=== PATIENT | female | born 1955 | race Asian ===

== ENCOUNTER 2016-11-04 08:12 | Day surgery (SDC) | END 2016-11-04 12:25 | disposition home or self-care (01) | DX: D12.6 Benign neoplasm of colon, unspecified (principal) | CPT/HCPCS: 45380; J2250; J3010 ==

== ENCOUNTER → 2016-11-17 | Outpatient (CLI) | payer BC ==
[~2016-11-17] MED LIST: AMLO1TAB; FISH OIL; PRAVASTATIN; SIMV10TA PO; VIT D
[2016-11-17 09:58] LABS: BASOPHIL # 0.1 10^3/ul (0.0-0.1); EOSINOPHILS # 0.3 10^3/ul (0.0-0.5); EOSINOPHILS % 4.9 % (0.0-7.0); HEMATOCRIT 42.4 % (37.0-47.0); HEMOGLOBIN 14.6 g/dl (12.0-16.0); LYMPHOCYTES # 2.5 10^3/ul (0.8-2.9); LYMPHOCYTES % 40.9 % (15.0-51.0); MEAN CORPUSCULAR HEMOGLOBIN 30.3 pg (29.0-33.0); MEAN CORPUSCULAR HGB CONC 34.4 g/dl (32.0-37.0); MEAN PLATELET VOLUME 9.2 fl (7.4-10.4); MONOCYTE # 0.3 10^3/ul (0.3-0.9); MONOCYTES % 5.2 % (0.0-11.0); NEUTROPHILS % 47.8 % (39.0-77.0); PLATELET COUNT 238 10^3/UL (140-415); RED BLOOD COUNT 4.82 10^6/ul (4.20-5.40); RED CELL DISTRIBUTION WIDTH 13.2 % (11.5-14.5); WHITE BLOOD COUNT 6.1 10^3/ul (4.8-10.8)
[2016-11-17 10:34] LABS: ALBUMIN 4.8 g/dl (3.3-4.9); ALBUMIN/GLOBULIN RATIO 1.17; BILIRUBIN,INDIRECT 0.5 mg/dl (0-1.1); BILIRUBIN,TOTAL 0.5 mg/dl (0.2-1.3); CALCIUM 10.3 mg/dl (8.4-10.2); CREATININE 0.82 mg/dl (0.44-1.00); POTASSIUM 4.3 mmol/L (3.5-5.1); TOTAL PROTEIN 8.9 g/dl (6.1-8.1)
[2016-11-17 11:06] LABS: CARCINOEMBRYONIC ANTIGEN 1.2 ng/ml (0.0-5.0)
== END | disposition home or self-care (01) ==
LOC: LAB 09:18
PROVIDERS: ATTEND Internal Medicine Hematology & Oncology
DX: C50.919 Malignant neoplasm of unspecified site of unspecified female breast (principal)
CPT/HCPCS: 80053; 82378; 82977; 83615; 85025; 86300

== ENCOUNTER → 2017-11-09 | Outpatient (CLI) | END | disposition home or self-care (01) ==

== ENCOUNTER → 2018-06-28 | Outpatient (CLI) | payer BC ==
[~2018-06-28] MED LIST changes: -AMLO1TAB
== END | disposition home or self-care (01) ==
LOC: LAB 11:21
PROVIDERS: ATTEND Internal Medicine
DX: E55.9 Vitamin D deficiency, unspecified (principal); E03.9 Hypothyroidism, unspecified; E78.5 Hyperlipidemia, unspecified; M19.012 Primary osteoarthritis, left shoulder
CPT/HCPCS: 73030; 80053; 80061; 83036; 84436; 84443; 85025

== ENCOUNTER 2018-07-08 20:06 | Emergency (ER) | payer BC ==
[~2018-07-08] VITALS: Ht 157.5 cm; Wt 57.9 kg
[2018-07-08 20:07] VITALS: Ht 157.5 cm; Wt 57.9 kg
[2018-07-08] MEDS ORDERED: SOD CHLORIDE 0.9% 500 ML IV STA (21:34)
--- NOTE | 2018-07-09 01:00 | ERD ---
ER Documentation Chief Complaint Chief Complaint SUDDEN ONSET OF SOB WITH BLURRED VISION AND CHEST PAIN HPI Is a 62-year-old female so she got numbness and tingling in bilateral fingertips. Shortness of breath but blurred vision and chest pain all while attending [employer] earlier today. States he felt very anxious. The symptoms have since resolved completely upon arrival to the ER. Denies any nausea vomiting fevers chills. Denies any complaints at this time is at baseline health status. Symptoms have been resolved for over 4 hours at this point ROS All systems reviewed and are negative except as per history of present illness. Medications Home Meds Reported Medications [Vit D] No Conflict Check 11/04/16 [Pravastatin] No Conflict Check 11/04/16 [Fish Oil] No Conflict Check 11/04/16 Simvastatin* (Zocor*) 10 Mg Tablet, 10 MG PO QHS, #30 TAB 06/19/15 Allergies Allergies: Coded Allergies: No Known Allergy (Unverified , 07/08/18) PMhx/Soc History of Surgery: Yes (LEFT MASTECTOMY, THYROIDECTOMY) Anesthesia Reaction: No Hx Neurological Disorder: No Hx Respiratory Disorders: No Hx Cardiac Disorders: Yes (HYPERLIPIDEMIA, HTN) Hx Psychiatric Problems: No Hx Miscellaneous Medical Probl: No Hx Alcohol Use: No Hx Substance Use: No Hx Tobacco Use: No Smoking Status: Never smoker Physical Exam Vitals Vital Signs Date Temp Pulse Resp B/P (MAP) Pulse Ox O2 O2 Flow FiO2 Time Delivery Rate 07/08/18 98.0 76 15 134/69 98 Room Air 21:45 (90) 07/08/18 99.2 92 17 173/79 100 20:07 (110) Physical Exam Const: No acute distress Head: Atraumatic Eyes: Normal Conjunctiva ENT: Normal External Ears, Nose and Mouth. Neck: Full range of motion. No meningismus. Resp: Clear to auscultation bilaterally Cardio: Regular rate and rhythm, no murmurs Abd: Soft, non tender, non distended. Normal bowel sounds Skin: No petechiae or rashes Back: No midline or flank tenderness Ext: No cyanosis, or edema Neur: Awake and alert Psych: Normal Mood and Affect Result Diagram: 07/08/18215107/08/182151 Results 24 hrs Laboratory Tests Test 07/08/18 21:52 White Blood Count 10.3 10^3/ul Red Blood Count 4.85 10^6/ul Hemoglobin 14.1 g/dl Hematocrit 42.2 % Mean Corpuscular Volume 87.0 fl Mean Corpuscular Hemoglobin 29.1 pg Mean Corpuscular Hemoglobin Concent 33.4 g/dl Red Cell Distribution Width 12.9 % Platelet Count 282 10^3/UL Mean Platelet Volume 8.5 fl Immature Granulocytes % 0.600 % Neutrophils % 69.3 % Lymphocytes % 19.9 % Monocytes % 6.1 % Eosinophils % 3.4 % Basophils % 0.7 % Nucleated Red Blood Cells % 0.0 /100WBC Immature Granulocytes # 0.060 10^3/ul Neutrophils # 7.1 10^3/ul Lymphocytes # 2.1 10^3/ul Monocytes # 0.6 10^3/ul Eosinophils # 0.4 10^3/ul Basophils # 0.1 10^3/ul Nucleated Red Blood Cells # 0.0 10^3/ul Sodium Level 140 mmol/L Potassium Level 4.7 mmol/L Chloride Level 103 mmol/L Carbon Dioxide Level 27 mmol/L Anion Gap 10 Blood Urea Nitrogen 24 mg/dl Creatinine 0.76 mg/dl Est Glomerular Filtrat Rate mL/min > 60 mL/min Glucose Level 123 mg/dl Calcium Level 10.2 mg/dl Total Bilirubin 0.3 mg/dl Direct Bilirubin 0.00 mg/dl Indirect Bilirubin 0.3 mg/dl Aspartate Amino Transf (AST/SGOT) 26 IU/L Alanine Aminotransferase (ALT/SGPT) 17 IU/L Alkaline Phosphatase 65 IU/L Troponin I < 0.012 ng/ml B-Type Natriuretic Peptide < 11 PG/ML Total Protein 9.0 g/dl Albumin 4.7 g/dl Globulin 4.30 g/dl Albumin/Globulin Ratio 1.09 Current Medications Medications Dose Sig/Ashlee Start Time Status Last (Trade) Ordered Route PRN Stop Time Admin Dose Reason Admin Sodium 500 ml @ Q1H STAT 07/08/18 DC 07/08/18 Chloride 500 mls/hr IV 21:34 22:06 07/08/18 22:41 Procedures/MDM EKG: Rate/Rhythm: [Normal Sinus Rhythm] QRS, ST, T-waves: [No changes consistent w/ acute ischemia] Impression: [No evidence of ischemia or arrhythmia] Chest X-ray 1V Interpreted by me: Soft Tissue: No acute abnormalities Bones: No acute abnormalities Mediastinum/Cardiac Silhouette/Lungs: [No acute abnormalities] Medical decision making: Patient's thoracic symptoms have stabilized while in the department and are stable for outpatient follow up. Exam and work up not consistent w/ ischemia, arrhythmia, PE or dissection. Patient's neurologic symptoms have stabilized while they have been evaluated in the department and are appropriate for outpatient work up. No e/o meningitis, intracranial bleed, seizure, stroke. Departure Diagnosis: Primary Impression: Shortness of breath Condition: Stable Patient Instructions: Coping with Shortness of Breath: Controlling Stress Referrals: ANN MARIE NELSON MD (PCP) CARMINA ALBARRAN Jul 09, 2018 01:00
[2018-07-09 01:40] VITALS: BP 135/64; PULSE 75; RESP 16
== END 2018-07-09 01:50 | disposition home or self-care (01) ==
LOC: E/R 20:06
DX: R06.02 Shortness of breath (principal); I10 Essential (primary) hypertension
CPT/HCPCS: 36415; 71045; 80053; 83880; 84484; 85025; 93005; 96360; 99285; J7040